=== PATIENT | male | born 1960 | race Caucasian/White ===

== ENCOUNTER 2024-09-16 13:37 | Emergency (ER) | payer OTHER ==
[~2024-09-16] VITALS: Ht 167.6 cm; Wt 90.0 kg
[2024-09-16 13:41] VITALS: BP 152/101; PULSE 99; RESP 18; TEMP 97.2; O2SAT 99
[2024-09-16] MEDS: FLUORESCEIN SODIUM 1MG/STRIP BOTHEYE ONE (18:45)
[2024-09-16] MEDS: TETRACAINE 0.5% OPHTH DROPS 4ML BOTHEYE ONE (18:45)
[2024-09-16] MEDS ORDERED: AMOX1TAB16 MT (20:09)
[2024-09-16] MEDS ORDERED: ACET-2708 MT (20:09)
== END 2024-09-16 20:35 | disposition home or self-care (01) ==
LOC: ER 13:46
DX: S02.5XXA Fracture of tooth (traumatic), initial encounter for closed fracture (principal); S00.212A Abrasion of left eyelid and periocular area, initial encounter; X58.XXXA Exposure to other specified factors, initial encounter; Y93.89 Activity, other specified; Y92.89 Other specified places as the place of occurrence of the external cause; Y99.8 Other external cause status
CPT/HCPCS: 70486; 99284